=== PATIENT | female | born 1965 | race Caucasian/White ===

== ENCOUNTER 2016-11-16 13:41 | Emergency (ER) | payer MEDICAID ==
[~2016-11-16] VITALS: Ht 162.6 cm; Wt 67.1 kg
[~2016-11-16 13:41] MED LIST: DIVA500T53 PO; FURO40TA4; HYDR200T PO; MAGN400T5 PO; NAPR-607; POT20T PO; SPIR50TA23; TRAM50TA2; VERA1TAB9 PO
[2016-11-16 14:13] VITALS: BP 143/72
== END 2016-11-16 16:00 | disposition home or self-care (01) ==
LOC: ER 13:43
DX: S11.91XA Laceration without foreign body of unspecified part of neck, initial encounter (principal); M19.90 Unspecified osteoarthritis, unspecified site; I10 Essential (primary) hypertension; Z86.73 Personal history of transient ischemic attack (TIA), and cerebral infarction without residual deficits; Z90.89 Acquired absence of other organs; Z98.890 Other specified postprocedural states; Z90.710 Acquired absence of both cervix and uterus; Z88.0 Allergy status to penicillin; Z88.1 Allergy status to other antibiotic agents; W18.40XA Slipping, tripping and stumbling without falling, unspecified, initial encounter; Y93.89 Activity, other specified; Y92.89 Other specified places as the place of occurrence of the external cause; Y99.8 Other external cause status; F17.210 Nicotine dependence, cigarettes, uncomplicated
CPT/HCPCS: 12002

== ENCOUNTER 2017-06-07 10:14 | Inpatient (IN) | payer MEDICAID ==
[~2017-06-07] VITALS: Ht 162.6 cm; Wt 75.7 kg
[~2017-06-07 10:14] MED LIST changes: -SPIR50TA23; +SPIR50TA23 PO
[2017-06-07] MEDS ORDERED: OMEP20CA74 PO (10:45)
[2017-06-07] MEDS ORDERED: DIPH50CA31 PO (10:45)
[2017-06-07] MEDS ORDERED: ZOLP10TA6 PO (10:45)
[2017-06-07] MEDS ORDERED: SODIUM CHLORIDE 0.9% 1,000 ML IVB ONE (11:12)
[2017-06-07] MEDS ORDERED: MORPHINE SULF INJ 2 MG/ML SYRINGE 1ML IV ONE (11:15)
[2017-06-07] MEDS ORDERED: ONDANSETRON HCL 4 MG/2 ML VIAL IV ONE (11:15)
[2017-06-07 11:40] LABS: INR 1.2 (0.9-1.15); Partial Thromboplastin Time 30.5 sec (22.64-33.71); Prothrombin Time 13.1 sec (9.37-12.3)
[2017-06-07 11:47] LABS: Albumin 3.2 g/dL (3.4-5.0); BUN/Creatinine Ratio 21.5; Bilirubin, Total 2.2 mg/dL (0.2-1.0); Calcium 9.2 mg/dL (8.5-10.1); Magnesium 1.5 mg/dL (1.6-2.6); Potassium 3.1 mmol/L (3.5-5.1); Total Protein 6.5 g/dL (6.4-8.2)
[2017-06-07] MEDS ORDERED: POTASSIUM CHL 20 Meq TABLET PO ONE ×2 (12:45→13:00)
[2017-06-07] MEDS ORDERED: SODIUM CHLORIDE 0.9% 1,000 ML IV SCH (12:48)
[2017-06-07 12:59] LABS: Basophils # (auto) 0 uL; Basophils % (auto) 0.2 % (0.0-2.0); CONDITION Y; DEFINITIVE SEE PRINTOUT; Eosinophils # (auto) 0 uL; Eosinophils % (auto) 0.1 % (0.0-7.0); Hematocrit 38.9 % (36.0-46.0); Hemoglobin 13.6 g/dL (12.2-16.2); Lymphocytes # (auto) 1.5 uL; Lymphocytes % (auto) 21.6 % (10.0-50.0); Mean Corpuscular Hemoglobin 34.2 pg (28.0-32.0); Mean Corpuscular Volume 97.8 fL (80.0-100.0); Mean Platelet Volume 10.1 fL (7.4-10.4); Monocytes # (auto) 0.7 uL; Monocytes % (auto) 9.6 % (0.0-12.0); Neutrophils # (auto) 4.7 uL; Neutrophils % (auto) 68.5 % (37.0-80.0); Platelet Count (auto) 58 10^3/uL (140-450); Red Cell Distribution Width 16.1 % (11.6-16.0); White Blood Cell 6.9 10^3/uL (4.4-10.8)
[2017-06-07] MEDS ORDERED: NITROGLYCERIN 0.4 MG SL TAB SL PRN (13:00)
[2017-06-07] MEDS ORDERED: HYDROcodone-ACET 5/325MG TAB PO PRN (13:00)
[2017-06-07] MEDS ORDERED: ACETAMINOPHEN 500 MG TAB PO PRN ×2 (13:00)
[2017-06-07] MEDS ORDERED: LORazepam 0.5 MG TAB PO PRN (13:00)
[2017-06-07] MEDS ORDERED: LACTULOSE 20Gm/30ML SOLN PO PRN (13:00)
[2017-06-07] MEDS ORDERED: MORPHINE SULF INJ 2 MG/ML SYRINGE 1ML IV PRN ×2 (13:00)
[2017-06-07] MEDS ORDERED: PROMETHAZINE HCL 25 MG/ML 1ML IV PRN (13:00)
[2017-06-07] MEDS ORDERED: MORPHINE SULFATE 4 MG/ML SYRG IV PRN (13:15)
[2017-06-07 13:17] LABS: Giant Platelets Few; Large Platelets FEW; Platelet Estimate Decreased
[2017-06-07 13:18] LABS: Platelet Clumps NO CLUMPS
[2017-06-07] MEDS: MAGNESIUM SULFATE 1GM/100ML 100 ML IV SCH ×2 (13:22→17:09)
[2017-06-07] MEDS: SOD CHL 0.9%/ KCL 20MEQ 1,000 ML IV SCH (13:22)
[2017-06-07 14:50] VITALS: BP 123/69
[2017-06-07] MEDS ORDERED: BIOT2500 PO (15:17)
[2017-06-07] MEDS ORDERED: HYDR-4663 PO (15:17)
[2017-06-07 15:27] VITALS: BP 123/69
[2017-06-07 16:59] VITALS: BP 112/58
[2017-06-07] MEDS ORDERED: MAGNESIUM SULFATE 1GM/100ML 100 ML IV ONE (16:59)
[2017-06-07] MEDS: HYDROmorphone HCL 2 MG/ML VL IV PRN ×2 (17:01→21:18)
[2017-06-07] MEDS: PANTOPRAZOLE 40 MG TAB PO SCH (17:09)
[2017-06-07] MEDS ORDERED: PATIENTS OWN MEDICATION (Zolpidem Tartrate 1 TAB) PO SCH (18:00)
[2017-06-07] MEDS: VERAPAMIL HCL 120 mg ER tab PO SCH (21:31)
[2017-06-07 21:49] VITALS: BP 95/63
[2017-06-08] VITALS (7 sets, daily range): BP systolic 99–114; BP diastolic 62–72
[2017-06-08] MEDS: SOD CHL 0.9%/ KCL 20MEQ 1,000 ML IV SCH ×3 (01:28→23:17)
[2017-06-08] MEDS: HYDROmorphone HCL 2 MG/ML VL IV PRN ×5 (04:04→23:15)
[2017-06-08 05:43] LABS: Basophils # (auto) 0 uL; Basophils % (auto) 0.4 % (0.0-2.0); CONDITION Y; DEFINITIVE SEE PRINTOUT; Eosinophils # (auto) 0 uL; Monocytes # (auto) 0.4 uL; Neutrophils # (auto) 2.6 uL; SUSPECT SEE PRINTOUT
[2017-06-08 05:53] LABS: Calcium 8.2 mg/dL (8.5-10.1); Potassium 4.7 mmol/L (3.5-5.1)
[2017-06-08 05:56] LABS: Albumin 2.4 g/dL (3.4-5.0); BUN/Creatinine Ratio 24.4
[2017-06-08 05:58] LABS: Bilirubin, Total 1.5 mg/dL (0.2-1.0); Total Protein 4.9 g/dL (6.4-8.2)
[2017-06-08 06:37] LABS: Urine Blood TRACE /uL (Negative); Urine Color Yellow (Yellow); Urine Glucose Normal (Normal); Urine Ketone TRACE (Negative); Urine Mucus FEW (None Seen); Urine Nitrite Negative (Negative); Urine RBC 19 /hpf (0 - 4); Urine Squamous Epithelial Cell FEW /hpf (<5)
[2017-06-08 06:39] LABS: Urine Bilirubin POSITIVE (Negative)
[2017-06-08 07:51] LABS: Eosinophils % (auto) 0.3 % (0.0-7.0); Hematocrit 36.4 % (36.0-46.0); Hemoglobin 12.4 g/dL (12.2-16.2); Lymphocytes # (auto) 1.7 uL; Mean Corpuscular Hemoglobin 33.6 pg (28.0-32.0); Mean Corpuscular Volume 98.9 fL (80.0-100.0); Mean Platelet Volume 9.4 fL (7.4-10.4); Monocytes % (auto) 8.6 % (0.0-12.0); Neutrophils % (auto) 54.7 % (37.0-80.0); Red Cell Distribution Width 16.1 % (11.6-16.0); White Blood Cell 4.7 10^3/uL (4.4-10.8)
[2017-06-08 07:54] LABS: Platelet Count (auto) 54 10^3/uL (140-450)
[2017-06-08 07:55] LABS: Platelet Estimate Decreased; RBC Morphology Normal
[2017-06-08] MEDS: VERAPAMIL HCL 120 mg ER tab PO SCH ×2 (10:00→21:42)
[2017-06-08] MEDS: PANTOPRAZOLE 40 MG TAB PO SCH (15:18)
[2017-06-08] MEDS: HYDROcodone-ACET 5/325MG TAB PO PRN (21:18)
[2017-06-09] MEDS: HYDROmorphone HCL 2 MG/ML VL IV PRN ×5 (03:12→21:31)
[2017-06-09] MEDS: SOD CHL 0.9%/ KCL 20MEQ 1,000 ML IV SCH ×2 (05:15→15:15)
[2017-06-09 05:23] VITALS: BP 118/72
[2017-06-09 07:49] LABS: Basophils # (auto) 0 uL; Basophils % (auto) 0.4 % (0.0-2.0); CONDITION Y; DEFINITIVE SEE PRINTOUT; Eosinophils # (auto) 0 uL; Eosinophils % (auto) 0.6 % (0.0-7.0); Hematocrit 37.6 % (36.0-46.0); Hemoglobin 12.9 g/dL (12.2-16.2); Lymphocytes # (auto) 1.5 uL; Lymphocytes % (auto) 35.4 % (10.0-50.0); Mean Corpuscular Hemoglobin 33.8 pg (28.0-32.0); Mean Corpuscular Hgb Conc. 34.4 g/dL (32.0-36.0); Mean Corpuscular Volume 98.2 fL (80.0-100.0); Mean Platelet Volume 9.6 fL (7.4-10.4); Monocytes # (auto) 0.5 uL; Monocytes % (auto) 10.4 % (0.0-12.0); Neutrophils # (auto) 2.3 uL; Neutrophils % (auto) 53.2 % (37.0-80.0); Platelet Count (auto) 37 10^3/uL (140-450); Red Cell Distribution Width 15.6 % (11.6-16.0); SUSPECT SEE PRINTOUT; White Blood Cell 4.4 10^3/uL (4.4-10.8)
[2017-06-09 07:50] VITALS: BP 117/81
[2017-06-09 08:00] VITALS: BP 117/81
[2017-06-09 08:04] LABS: Platelet Clumps FEW; Platelet Estimate Decreased
[2017-06-09] MEDS: VERAPAMIL HCL 120 mg ER tab PO SCH ×2 (10:01→21:32)
[2017-06-09] MEDS: PANTOPRAZOLE 40 MG TAB PO SCH (10:01)
[2017-06-09 12:00] VITALS: BP 113/71
[2017-06-09 16:55] VITALS: BP 112/77
[2017-06-09 18:39] LABS: Basophils # (auto) 0 uL; Basophils % (auto) 0.2 % (0.0-2.0); CONDITION Y; DEFINITIVE SEE PRINTOUT; Eosinophils # (auto) 0 uL; Eosinophils % (auto) 0.5 % (0.0-7.0); Hematocrit 37.7 % (36.0-46.0); Lymphocytes # (auto) 1.7 uL; Lymphocytes % (auto) 37.1 % (10.0-50.0); Mean Corpuscular Hemoglobin 33.8 pg (28.0-32.0); Mean Corpuscular Hgb Conc. 34.4 g/dL (32.0-36.0); Mean Corpuscular Volume 98.3 fL (80.0-100.0); Mean Platelet Volume 10.4 fL (7.4-10.4); Monocytes # (auto) 0.7 uL; Monocytes % (auto) 14.5 % (0.0-12.0); Neutrophils # (auto) 2.2 uL; Neutrophils % (auto) 47.7 % (37.0-80.0); Platelet Count (auto) 53 10^3/uL (140-450); Red Cell Distribution Width 15.4 % (11.6-16.0); SUSPECT SEE PRINTOUT; White Blood Cell 4.6 10^3/uL (4.4-10.8)
[2017-06-09 22:00] VITALS: BP 113/69
[2017-06-10] VITALS (8 sets, daily range): BP systolic 98–132; BP diastolic 61–80
[2017-06-10] MEDS: SOD CHL 0.9%/ KCL 20MEQ 1,000 ML IV SCH ×3 (01:15→22:29)
[2017-06-10] MEDS: HYDROmorphone HCL 2 MG/ML VL IV PRN ×6 (01:36→23:39)
[2017-06-10 05:28] LABS: Basophils # (auto) 0 uL; Basophils % (auto) 0.5 % (0.0-2.0); CONDITION Y; DEFINITIVE SEE PRINTOUT; Eosinophils # (auto) 0 uL; Eosinophils % (auto) 0.2 % (0.0-7.0); Hematocrit 34.4 % (36.0-46.0); Hemoglobin 11.8 g/dL (12.2-16.2); Lymphocytes # (auto) 1.5 uL; Lymphocytes % (auto) 35.9 % (10.0-50.0); Mean Corpuscular Hemoglobin 33.8 pg (28.0-32.0); Mean Corpuscular Hgb Conc. 34.3 g/dL (32.0-36.0); Mean Corpuscular Volume 98.6 fL (80.0-100.0); Mean Platelet Volume 8.5 fL (7.4-10.4); Monocytes # (auto) 0.6 uL; Monocytes % (auto) 15.4 % (0.0-12.0); Platelet Count (auto) 54 10^3/uL (140-450); Red Cell Distribution Width 16.1 % (11.6-16.0); SUSPECT SEE PRINTOUT; White Blood Cell 4.1 10^3/uL (4.4-10.8)
[2017-06-10] MEDS: PANTOPRAZOLE 40 MG TAB PO SCH (10:29)
[2017-06-10] MEDS: VERAPAMIL HCL 120 mg ER tab PO SCH ×2 (10:31→22:00)
[2017-06-10] MEDS: HYDROcodone-ACET 5/325MG TAB PO PRN (13:32)
[2017-06-10] MEDS ORDERED: MIDAZOLAM HCL 1MG/1ML-2 ML VIAL ONE (14:41)
[2017-06-10] MEDS ORDERED: MEPERIDINE HCL (50 MG/ML) 1 ML VIAL ONE (14:41)
[2017-06-10] MEDS ORDERED: fentaNYL CITRATE 100 MCG/2 ML VL ONE (14:41)
[2017-06-10] MEDS ORDERED: PROPOFOL 10 MG/ML 20 ML IV ONE (14:48)
[2017-06-10] MEDS ORDERED: DEXAMETHASONE SOD PHOS 10MG/1ML VIAL INJ ONE (14:48)
[2017-06-10] MEDS ORDERED: VANCOMYCIN HCL 1000 MG VL ONE (14:53)
[2017-06-10] MEDS: VANCOMYCIN 1GM/250ML D5W 250 ML IV SCH (15:00)
[2017-06-10] MEDS ORDERED: SUCCINYLCHOLINE CHLORIDE 20 MG/ML 10ML VIAL IV ONE (15:06)
[2017-06-10] MEDS ORDERED: ePHEDrine SULFATE 50 MG/ML AMP IV PRN (15:30)
[2017-06-10] MEDS ORDERED: hydrALAZINE HCL 20 MG/ML VL IV PRN (15:30)
[2017-06-10] MEDS ORDERED: MORPHINE SULF INJ 2 MG/ML SYRINGE 1ML IV PRN (15:30)
[2017-06-10] MEDS ORDERED: HYDROmorphone HCL 2 MG/ML VL IV PRN (15:30)
[2017-06-10] MEDS ORDERED: LABETALOL HCL 5 MG/ML 4ML SYRINGE IV PRN (15:30)
[2017-06-10] MEDS ORDERED: ONDANSETRON HCL 4 MG/2 ML VIAL IV ONE (15:30)
[2017-06-10] MEDS ORDERED: KETOROLAC TROMETH 30 MG/ML 1ML VIAL IV ONE (15:30)
[2017-06-10] MEDS ORDERED: MIDAZOLAM HCL 1MG/1ML-2 ML VIAL IV PRN (15:30)
[2017-06-10] MEDS ORDERED: BUPIVACAINE W/ EPINEPH 0.25% INJ 50ML MDV ONE (16:14)
[2017-06-10] MEDS: TEMAZEPAM 15 MG CAP PO PRN (23:10)
[2017-06-11] MEDS: VANCOMYCIN 1GM/250ML D5W 250 ML IV SCH (03:07)
[2017-06-11] MEDS: HYDROmorphone HCL 2 MG/ML VL IV PRN ×6 (03:39→22:11)
[2017-06-11 05:21] LABS: Basophils # (auto) 0 uL; Basophils % (auto) 0.2 % (0.0-2.0); CONDITION Y; Eosinophils # (auto) 0 uL; Hematocrit 34.3 % (36.0-46.0); Lymphocytes # (auto) 0.4 uL; Lymphocytes % (auto) 18.1 % (10.0-50.0); Mean Corpuscular Hemoglobin 34.4 pg (28.0-32.0); Mean Corpuscular Hgb Conc. 35.1 g/dL (32.0-36.0); Mean Corpuscular Volume 98.1 fL (80.0-100.0); Mean Platelet Volume 9.1 fL (7.4-10.4); Monocytes # (auto) 0.3 uL; Monocytes % (auto) 14.3 % (0.0-12.0); Neutrophils # (auto) 1.6 uL; Neutrophils % (auto) 67.4 % (37.0-80.0); Platelet Count (auto) 73 10^3/uL (140-450); Red Cell Distribution Width 15.3 % (11.6-16.0); SUSPECT SEE PRINTOUT; White Blood Cell 2.4 10^3/uL (4.4-10.8)
[2017-06-11 05:31] VITALS: BP 116/75
[2017-06-11] MEDS: SOD CHL 0.9%/ KCL 20MEQ 1,000 ML IV SCH ×2 (07:59→17:22)
[2017-06-11 08:00] VITALS: BP 98/65
[2017-06-11 08:55] VITALS: BP 98/65
[2017-06-11] MEDS: ENOXAPARIN SOD 40 MG/0.4 ML SYRINGE SC SCH (09:19)
[2017-06-11] MEDS: PANTOPRAZOLE 40 MG TAB PO SCH (09:20)
[2017-06-11] MEDS: VERAPAMIL HCL 120 mg ER tab PO SCH ×2 (09:20→22:00)
[2017-06-11 12:38] VITALS: BP 99/61
[2017-06-11 17:00] VITALS: BP 96/57
[2017-06-11 22:00] VITALS: BP 109/54
[2017-06-12] MEDS: TEMAZEPAM 15 MG CAP PO PRN (00:02)
[2017-06-12] MEDS: SOD CHL 0.9%/ KCL 20MEQ 1,000 ML IV SCH ×2 (04:33→13:15)
[2017-06-12] MEDS: HYDROmorphone HCL 2 MG/ML VL IV PRN ×5 (04:50→22:50)
[2017-06-12 05:30] VITALS: BP 102/54
[2017-06-12 08:08] LABS: Basophils # (auto) 0 uL; Basophils % (auto) 0.2 % (0.0-2.0); CONDITION Y; Eosinophils # (auto) 0 uL; Eosinophils % (auto) 0.2 % (0.0-7.0); Hematocrit 32.8 % (36.0-46.0); Hemoglobin 11.2 g/dL (12.2-16.2); Lymphocytes % (auto) 32.3 % (10.0-50.0); Mean Corpuscular Hemoglobin 33.7 pg (28.0-32.0); Mean Corpuscular Hgb Conc. 34.3 g/dL (32.0-36.0); Mean Corpuscular Volume 98.5 fL (80.0-100.0); Mean Platelet Volume 10.7 fL (7.4-10.4); Monocytes # (auto) 1.2 uL; Neutrophils % (auto) 48.4 % (37.0-80.0); Platelet Count (auto) 105 10^3/uL (140-450); Red Cell Distribution Width 16.2 % (11.6-16.0); White Blood Cell 6.2 10^3/uL (4.4-10.8)
[2017-06-12 08:27] LABS: Monocytes % (auto) 18.9 % (0.0-12.0)
[2017-06-12 08:29] LABS: Platelet Clumps MODERATE
[2017-06-12 08:30] LABS: Platelet Estimate Decreased
[2017-06-12 09:00] VITALS: BP 103/73
[2017-06-12] MEDS: ENOXAPARIN SOD 40 MG/0.4 ML SYRINGE SC SCH (09:22)
[2017-06-12] MEDS: PANTOPRAZOLE 40 MG TAB PO SCH (09:22)
[2017-06-12] MEDS: VERAPAMIL HCL 120 mg ER tab PO SCH ×3 (09:25→22:07)
[2017-06-12 13:00] VITALS: BP 98/68
[2017-06-12 17:00] VITALS: BP 110/67
[2017-06-12 21:46] VITALS: BP 110/68
[2017-06-13] MEDS: TEMAZEPAM 15 MG CAP PO PRN (00:13)
[2017-06-13] MEDS: HYDROmorphone HCL 2 MG/ML VL IV PRN ×4 (02:52→12:20)
[2017-06-13 05:13] VITALS: BP 121/74
[2017-06-13] MEDS: SOD CHL 0.9%/ KCL 20MEQ 1,000 ML IV SCH ×2 (06:47→09:15)
[2017-06-13 08:19] VITALS: BP 102/53
[2017-06-13 08:49] LABS: CONDITION Y; Hematocrit 33.8 % (36.0-46.0); Hemoglobin 11.6 g/dL (12.2-16.2); Mean Corpuscular Hemoglobin 34.1 pg (28.0-32.0); Mean Corpuscular Hgb Conc. 34.2 g/dL (32.0-36.0); Mean Corpuscular Volume 99.6 fL (80.0-100.0); Mean Platelet Volume 10.5 fL (7.4-10.4); Platelet Count (auto) 94 10^3/uL (140-450); Red Cell Distribution Width 15.9 % (11.6-16.0); SUSPECT SEE PRINTOUT; White Blood Cell 6.1 10^3/uL (4.4-10.8)
[2017-06-13 08:57] LABS: Albumin 2.2 g/dL (3.4-5.0); BUN/Creatinine Ratio 15.4; Bilirubin, Total 0.5 mg/dL (0.2-1.0); Calcium 8.1 mg/dL (8.5-10.1); Potassium 3.6 mmol/L (3.5-5.1)
[2017-06-13 09:38] LABS: Metamyelocytes % 0; Myelocytes % 0; Promyelocytes % 0; Reactive Lymphocytes 0
[2017-06-13] MEDS: VERAPAMIL HCL 120 mg ER tab PO SCH (10:00)
[2017-06-13] MEDS: ENOXAPARIN SOD 40 MG/0.4 ML SYRINGE SC SCH (10:00)
[2017-06-13] MEDS: PANTOPRAZOLE 40 MG TAB PO SCH (11:05)
[2017-06-13 12:13] LABS: Platelet Estimate Decreased
[2017-06-13 12:15] LABS: Platelet Clumps FEW
[2017-06-13 12:30] VITALS: BP 104/68
[2017-06-13 14:20] VITALS: BP 104/68
== END 2017-06-13 18:54 | DRG 301 ==
LOC: EDBD 10:14 → ER 10:14 → TELE 10:15 → TELE-WESTW 14:49
PROVIDERS: ADMIT Internal Medicine; ATTEND Family Medicine
PROC: 0MBM0ZZ Excision of Left Hip Bursa and Ligament, Open Approach (ICD-10-PCS; 2017-06-10)
PROC: 0SRS01Z Replacement of Left Hip Joint, Femoral Surface with Metal Synthetic Substitute, Open Approach (ICD-10-PCS; principal; 2017-06-10 14:51)
DX: S72.112A Displaced fracture of greater trochanter of left femur, initial encounter for closed fracture (principal); D69.6 Thrombocytopenia, unspecified; E87.1 Hypo-osmolality and hyponatremia; E83.42 Hypomagnesemia; E86.1 Hypovolemia; M81.0 Age-related osteoporosis without current pathological fracture; I10 Essential (primary) hypertension; E87.6 Hypokalemia; F17.210 Nicotine dependence, cigarettes, uncomplicated; G40.909 Epilepsy, unspecified, not intractable, without status epilepticus; J44.9 Chronic obstructive pulmonary disease, unspecified; K21.9 Gastro-esophageal reflux disease without esophagitis; M19.90 Unspecified osteoarthritis, unspecified site; M70.60 Trochanteric bursitis, unspecified hip; K76.9 Liver disease, unspecified; M85.852 Other specified disorders of bone density and structure, left thigh; W19.XXXA Unspecified fall, initial encounter; Z96.652 Presence of left artificial knee joint; Y93.89 Activity, other specified; Y92.89 Other specified places as the place of occurrence of the external cause; Z88.0 Allergy status to penicillin; Z90.49 Acquired absence of other specified parts of digestive tract; Z88.1 Allergy status to other antibiotic agents; Z88.8 Allergy status to other drugs, medicaments and biological substances; Z79.899 Other long term (current) drug therapy; Z80.0 Family history of malignant neoplasm of digestive organs; Z80.1 Family history of malignant neoplasm of trachea, bronchus and lung; Z80.41 Family history of malignant neoplasm of ovary; Z80.8 Family history of malignant neoplasm of other organs or systems; Z81.8 Family history of other mental and behavioral disorders; Z82.0 Family history of epilepsy and other diseases of the nervous system; Z82.3 Family history of stroke; Z82.49 Family history of ischemic heart disease and other diseases of the circulatory system; Z82.5 Family history of asthma and other chronic lower respiratory diseases; Z82.62 Family history of osteoporosis; Z83.3 Family history of diabetes mellitus; Z86.73 Personal history of transient ischemic attack (TIA), and cerebral infarction without residual deficits
CPT/HCPCS: 36415; 71010; 72192; 73501; 73562; 80053; 80164; 81001; 83735; 85007; 85025; 85027; 85610; 85730; 86850; 86900; 86901; 87086; 93005; 93306; 94761; 96361; 96365; 96375; 96376; 97110; 97116; 97163; 97530; A4565; J0330; J1100; J2250; J2405; J2704